=== PATIENT | male | born 1955 | race Caucasian/White ===

== ENCOUNTER → 2016-09-22 | Outpatient (CLI) | payer OTHER | LOC: RAD 14:17 | DX: R59.1 Generalized enlarged lymph nodes (principal); R53.83 Other fatigue; R05 Cough ==

== ENCOUNTER → 2016-09-29 | Outpatient (CLI) | payer OTHER | LOC: CAT 06:22 | DX: J04.0 Acute laryngitis (principal); E27.9 Disorder of adrenal gland, unspecified; R06.02 Shortness of breath ==

== ENCOUNTER → 2016-10-11 | Outpatient (CLI) | payer OTHER ==
[~2016-10-11] VITALS: Ht 185.4 cm; Wt 72.6 kg
--- NOTE | ~2016-10-11 | S ---
[facility] [address] [place] [address] SURGICAL PATH RPT PROCEDURE Name: MANAS COTTO JR [id number] Admission: 10/11/16 Date of : 53 Discharge: Report #: [id number] Path Case #: [id number] PATHOLOGY REPORT COLLECTION DATE: 10/11/2016 RECEIVED DATE: 10/11/2016 SUBMITTING PHYS: Dr. Nicolas Zayas OTHER PHYS: PRAKASH Wong SPECIMEN(S) RECEIVED: A.Left adrenal biopsy * * * * * * * * * * * * FINAL DIAGNOSIS: Left adrenal mass, needle core biopsy: - SMALL CELL CARCINOMA. COMMENT: Multiple immunohistochemical stains are performed to further characterize the neoplasm in a tissue architectural context based on the morphology of the tumor. (Block A1) AE1/AE3 - Perinuclear dot-like reactivity present CD45 - Non-reactive within the tumor CD56 Membranous reactivity present TTF-1 No nuclear reactivity present Synaptophysin No reactivity present The histomorphology as well as the immunohistochemical stains support a diagnosis of small cell carcinoma. 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 Please see separate report for details. Co-reviewed: Dr. Brittaney Gloria. Findings are discussed with Dr. Nicolas Zayas at approximately 10:30 a.m. on 10/13/16. PATHOLOGIST: Dayana Larsen M.D. REPORT ELECTRONICALLY SIGNED BY: Dayana Larsen M.D. DATE/TIME: 10/13/2016 15:20 * * * * * * * * * * * * GROSS PATHOLOGY: Received in formalin labeled "Manas Cotto, left adrenal mass biopsy," are multiple distinct needle cores of lemons soft tissue ranging from 0.7 to 1.1 cm in length, which are submitted entirely in [address] [address] SURGICAL PATH RPT PROCEDURE Name: MANAS COTTO Room #: [facility].#: [id number] Admission: 10/11/16 Date of : 53 Discharge: Report #: [id number] Path Case #: [id number] cassette A1. (SNA; 10/12/2016) CLINICAL HISTORY: Lung mass, adenopathy, as well as multiple additional masses including an adrenal mass. INITIAL CPT CODE(S): A; 52006, 69572, 50913, 95310, 53838, 70649 Professional services performed by [facility] at [address], [place] [address] Technical services performed by [facility] at [address] [place] [address], [facility] [address] [address]. [facility] [address] [address] PHONE: [phone] DIRECTOR: Uriah Salgado M.D. * * * END OF REPORT * * *
[2016-10-11 08:10] LABS: HEMATOCRIT 37.6 % (42.0-52.0); HEMOGLOBIN 12.5 gm/dL (14.0-18.0); MCHC 33.2 g/dL (28.0-37.0); MCV 87.1 fL (80.0-100.0); RBC 4.32 mil/uL (4.50-6.00); RDW 13.5 % (10.5-14.5); WBC 9.1 thou/uL (4.0-11.0)
[2016-10-11 08:18] LABS: CALCIUM 8.9 mg/dL (8.5-10.1); CREATININE 0.8 mg/dL (0.7-1.3); POTASSIUM 3.6 mmol/L (3.5-5.1)
[2016-10-11 08:25] LABS: APTT 30.3 Seconds (24.5-32.8); PROTIME 10.6 Seconds (9.3-11.4)
[2016-10-11 10:07] VITALS: BP 116/74
[2016-10-11 10:19] VITALS: BP 109/70
[2016-10-11 10:21] VITALS: BP 106/74
== END | disposition home or self-care (01) ==
LOC: CAT 07:07
PROVIDERS: Radiology Vascular & Interventional Radiology
DX: C74.92 Malignant neoplasm of unspecified part of left adrenal gland (principal)

== ENCOUNTER → 2016-10-25 | Outpatient (CLI) | payer OTHER | LOC: MRI 05:23 | PROVIDERS: Internal Medicine Pulmonary Disease | DX: C34.90 Malignant neoplasm of unspecified part of unspecified bronchus or lung (principal) ==